=== PATIENT | male | born 1960 | race Caucasian/White ===

== ENCOUNTER 2018-01-23 15:02 | Emergency (ER) | payer BC, OTHER ==
[~2018-01-23] VITALS: Ht 170.2 cm; Wt 70.0 kg
[~2018-01-23 15:02] MED LIST: PROM25SU8 PO; ST JTAB PO
[2018-01-23 15:04] VITALS: PULSE 92; RESP 16; TEMP 97.4; O2SAT 99
[2018-01-23] MEDS ORDERED: ORPHENADRINE INJ 60 MG/2 ML AMP IM ONE (15:30)
[2018-01-23] MEDS ORDERED: KETOROLAC TROMETHAMINE 60 MG/2 ML (IM) VIAL IM ONE (15:30)
[2018-01-23] MEDS ORDERED: ROBA500T PO (15:37)
[2018-01-23] MEDS ORDERED: IBUP1TAB7 PO (15:37)
--- NOTE | 2018-01-23 15:37 | PD ---
HPI Chief Complaint: Back/ Neck Pain or Injury Time Seen by Provider: 15:25 Travel History International Travel<30 days: No Contact w/Intl Traveler<30days: No Traveled to known affect area: No History of Present Illness HPI 57 with low back pain that radiates into the right leg 3 days. He cannot recall specific injury or trauma. He reports he was moving furniture in his house over the weekend which she attributes to the pain. He reports previous back pain which was similar to this. He denies fever, incontinence, saddle anesthesia, paresthesia or weakness of the extremities. No history of IV drug use. Symptom severity is moderate. Aggravated by movement slightly relieved with rest. PFSH Past Medical History Hx Anticoagulant Therapy: Yes (asa 81mg) Cardiac Catheterization: Yes Cardiovascular Problems: Yes (4 vessel bypass) Diminished Hearing: No Hypertension: Yes Immunizations Current: No Myocardial Infarction: Yes Tetanus Vaccination: < 5 Years Past Surgical History Appendectomy: Yes Coronary Artery Bypass Graft: Yes (4X in 2008) Genitourinary Surgery: Yes (APPENDECTOMY @ 10 YEARS OF AGE) Social History Alcohol Use: Yes (couple beers a day) Tobacco Use: Yes (1 ppd) Substance Use: No Allergies-Medications (Allergen,Severity, Reaction): Coded Allergies: No Known Allergies (Verified Adverse Reaction, Unknown, 01/23/18) Reported Meds & Prescriptions Reported Meds & Active Scripts Active Review of Systems Except as stated in HPI: all other systems reviewed are Neg General / Constitutional: No: Fever Eyes: No: Visual changes HENT: No: Headaches Cardiovascular: No: Chest Pain or Discomfort Respiratory: No: Shortness of Breath Gastrointestinal: No: Abdominal Pain Genitourinary: No: Dysuria Skin: No Rash Neurologic: No: Weakness Physical Exam Narrative GENERAL: Alert and well-appearing 57-year-old male SKIN: Warm and dry. HEAD: Atraumatic. Normocephalic. EYES: Pupils equal and round. No injection or drainage. ENT: No nasal bleeding or discharge. Mucous membranes pink and moist. NECK: Trachea midline. No JVD. CARDIOVASCULAR: Regular rate and rhythm. RESPIRATORY: No accessory muscle use. Clear to auscultation. Breath sounds equal bilaterally. GASTROINTESTINAL: Abdomen soft, non-tender, nondistended. Hepatic and splenic margins not palpable. MUSCULOSKELETAL: Extremities without clubbing, cyanosis, or edema. Normal strength and sensation in the lower extremities. Ambulates with a steady gait. BACK: No CVA tenderness. No rash. +TTP right lumbar paravertebral musculature and over the SI joint. NEUROLOGICAL: Awake and alert. No obvious cranial nerve deficits. Motor grossly within normal limits. Five out of 5 muscle strength in the arms and legs. Data Data Last Documented VS Vital Signs Date Time Temp Pulse Resp B/P (MAP) Pulse Ox O2 Delivery O2 Flow Rate FiO2 01/23/18 15:04 97.4 92 16 99 Orders Orders Ketorolac Inj (Toradol Inj) (01/23/18 15:30) Orphenadrine Inj (Norflex Inj) (01/23/18 15:30) [facility] Medical Decision Making Medical Screen Exam Complete: Yes Emergency Medical Condition: Yes Differential Diagnosis Lumbar strain, sciatica, herniated disc Narrative Course 57-year-old male here with low back pain. He has a normal neurologic exam. He was given a shot of Toradol and Norflex. He reports symptom improvement. Diagnosis Primary Impression: Lumbar strain Qualified Codes: S39.012A - Strain of muscle, fascia and tendon of lower back , initial encounter Referrals: Primary Care Physician Additional Instructions: Medication as directed. Ice and/or heat for comfort. Perform light stretching starting tomorrow. Follow-up with your primary doctor Scripts Ibuprofen (Ibuprofen) 800 Mg Tab 800 MG PO Q6HR Y for PAIN, #20 TAB 0 Refills Prov: Tavia Silva 01/23/18 Methocarbamol (Robaxin) 500 Mg Tab 500 MG PO QID for Muscle Spasm for 4 Days, TAB 0 Refills Prov: Tavia Silva 01/23/18 Disposition: 01 DISCHARGE HOME Condition: Stable Tavia Silva Jan 23, 2018 15:37
== END 2018-01-23 16:10 | disposition home or self-care (01) ==
LOC: PHEFT 15:02
DX: S39.012A Strain of muscle, fascia and tendon of lower back, initial encounter (principal); X50.9XXA Other and unspecified overexertion or strenuous movements or postures, initial encounter; I10 Essential (primary) hypertension; I25.2 Old myocardial infarction; F17.200 Nicotine dependence, unspecified, uncomplicated; Z79.82 Long term (current) use of aspirin; Z95.1 Presence of aortocoronary bypass graft
CPT/HCPCS: 96372; 99283; J1885; J2360

== ENCOUNTER 2018-01-25 17:05 | Emergency (ER) | payer OTHER ==
[~2018-01-25 17:05] MED LIST changes: +IBUP1TAB7 PO; -PROM25SU8 PO; +ROBA500T PO; -ST JTAB PO
[2018-01-25 17:29] VITALS: BP 162/106; PULSE 101; RESP 18; TEMP 98.4; O2SAT 99
[2018-01-25] MEDS ORDERED: CYCLOBENZAPRINE HCL 10 MG TAB PO ONE (18:45)
[2018-01-25] MEDS ORDERED: DEXAMETHASONE SOD PHOS 20 MG/5 ML VIAL IM ONE (18:45)
[2018-01-25] MEDS ORDERED: CYCL10TA PO (18:57)
[2018-01-25] MEDS ORDERED: KETO10 PO (18:57)
[2018-01-25] MEDS ORDERED: PRED50 PO (18:57)
--- NOTE | 2018-01-25 18:57 | PD ---
HPI Chief Complaint: Back/ Neck Pain or Injury Time Seen by Provider: 18:15 Travel History International Travel<30 days: No Contact w/Intl Traveler<30days: No History of Present Illness HPI Patient is a 57-year-old male presenting to emerge department for evaluation of right lower back pain that started 4 days ago. Patient states the pain radiates down the back of his right leg. He reports the pain is 8 out of 10, sore and cramping, at times and shooting. Pain is constant, worse with ambulation and changing positions. Patient states he has been lying around for a few days because the pain is so bad. Patient reports that he went to urgent care 2 days ago and was given Robaxin and ibuprofen. He states that he has been taking this as scheduled but it does not help. He denies any weakness, numbness, bladder bowel incontinence, saddle paresthesia. Symptom onset was sudden, symptoms are moderate in nature. PFSH Past Medical History Hx Anticoagulant Therapy: Yes (asa 81mg) Cardiac Catheterization: Yes Cardiovascular Problems: Yes Diminished Hearing: No Hypertension: Yes Immunizations Current: No Myocardial Infarction: Yes Past Surgical History Appendectomy: Yes Coronary Artery Bypass Graft: Yes (4X in 2008) Genitourinary Surgery: Yes (APPENDECTOMY @ 10 YEARS OF AGE) Social History Alcohol Use: Yes (couple beers a day) Tobacco Use: Yes (1 ppd) Substance Use: Yes (MARIJUANA) Allergies-Medications (Allergen,Severity, Reaction): Coded Allergies: No Known Allergies (Verified Adverse Reaction, Unknown, 01/25/18) Reported Meds & Prescriptions Reported Meds & Active Scripts Active Prednisone 50 Mg Tab 50 Mg PO DAILY 5 Days Flexeril (Cyclobenzaprine HCl) 10 Mg Tab 10 Mg PO TID PRN Ketorolac (Ketorolac Tromethamine) 10 Mg Tab 10 Mg PO Q6HR PRN 10 Days Ibuprofen 800 Mg Tab 800 Mg PO Q6HR PRN Robaxin (Methocarbamol) 500 Mg Tab 500 Mg PO QID 4 Days Review of Systems Except as stated in HPI: all other systems reviewed are Neg Musculoskeletal: Positive: Myalgias, Cramping, Pain Physical Exam Narrative GENERAL: Well-developed, well-nourished, well-appearing male. Presenting in no acute distress. SKIN: Warm and dry. HEAD: Atraumatic. Normocephalic. EYES: Pupils equal and round. No scleral icterus. No injection or drainage. ENT: No nasal bleeding or discharge. Mucous membranes pink and moist. NECK: Trachea midline. No JVD. CARDIOVASCULAR: Regular rate and rhythm. RESPIRATORY: No accessory muscle use. Clear to auscultation. Breath sounds equal bilaterally. GASTROINTESTINAL: Abdomen soft, non-tender, nondistended. Hepatic and splenic margins not palpable. MUSCULOSKELETAL: Extremities without clubbing, cyanosis, or edema. No obvious deformities. Tenderness to palpation in the right paraspinal musculature and lumbar region. No spinal tenderness or step-off noted. NEUROLOGICAL: Awake and alert. No obvious cranial nerve deficits. Motor grossly within normal limits. Five out of 5 muscle strength in the arms and legs. Normal speech. PSYCHIATRIC: Appropriate mood and affect; insight and judgment normal. Data Data Last Documented VS Vital Signs Date Time Temp Pulse Resp B/P (MAP) Pulse Ox O2 Delivery O2 Flow Rate FiO2 01/25/18 17:29 98.4 101 18 162/106 (124) 99 Orders Orders Dexamethasone Inj (Decadron Inj) (01/25/18 18:45) Cyclobenzaprine (Flexeril) (01/25/18 18:45) Ed Discharge Order (01/25/18 18:57) [facility] Medical Decision Making Medical Screen Exam Complete: Yes Emergency Medical Condition: Yes Medical Record Reviewed: Yes Interpretation(s) Vital Signs Date Time Temp Pulse Resp B/P (MAP) Pulse Ox O2 Delivery O2 Flow Rate FiO2 01/25/18 17:29 98.4 101 18 162/106 (124) 99 Differential Diagnosis Myalgia versus muscle strain versus muscle spasm versus discogenic pain versus sciatica versus other Narrative Course Patient is well-appearing 57-year-old male presenting for evaluation of low back pain. Medical records reviewed, patient was in [place] 2 days ago and prescribed ibuprofen and Robaxin. Patient has a tender point on exam. Exam is consistent with musculoskeletal strain. Patient was given injection of dexamethasone and oral Flexeril. Patient will be discharged home, he will be given new prescriptions for different medications. He was encouraged to avoid bed rest, maintain active range of motion exercises, apply warm heat to affected area. He verbalized understanding of instructions. Patient stable for discharge. Diagnosis Primary Impression: Lumbar strain Qualified Codes: S39.012D - Strain of muscle, fascia and tendon of lower back , subsequent encounter Referrals: [facility] 1 week Patient Instructions: General Instructions, Muscle Spasm (ED), Muscle Strain ( ED) Additional Instructions: Follow-up at the [facility] clinic Take medications as directed Stop laying around, perform gentle stretching exercises and range of motion exercises Apply warm heat to the affected area Return to emergency department for any new or worsening symptoms Discontinue previously prescribed medications. Med/Other Pt SpecificInfo: Prescription(s) given Scripts Prednisone (Prednisone) 50 Mg Tab 50 MG PO DAILY for 5 Days, #5 TAB 0 Refills Prov: Mary Larson 01/25/18 Cyclobenzaprine (Flexeril) 10 Mg Tab 10 MG PO TID Y for MUSCLE SPASM, #30 TAB 0 Refills Prov: Mary Larson 01/25/18 Ketorolac (Ketorolac) 10 Mg Tab 10 MG PO Q6HR Y for PAIN for 10 Days, TAB 0 Refills Prov: Mary Larson 01/25/18 Disposition: 01 DISCHARGE HOME Condition: Stable Mary Larson Jan 25, 2018 18:57
== END 2018-01-25 20:22 | disposition home or self-care (01) ==
LOC: NEPD 17:05
DX: S39.012A Strain of muscle, fascia and tendon of lower back, initial encounter (principal); I10 Essential (primary) hypertension; I25.2 Old myocardial infarction; F17.210 Nicotine dependence, cigarettes, uncomplicated; Z79.82 Long term (current) use of aspirin
CPT/HCPCS: 96372; 99283; J1100

== ENCOUNTER 2018-01-28 09:40 | Emergency (ER) | payer OTHER ==
[~2018-01-28] VITALS: Ht 170.2 cm; Wt 75.0 kg
[~2018-01-28 09:40] MED LIST changes: +CYCL10TA PO; +KETO10 PO; +PRED50 PO
[2018-01-28 09:45] VITALS: BP 173/102; PULSE 89; RESP 18; TEMP 97.5; O2SAT 100
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
[2018-01-28] MEDS ORDERED: GABA300C5 PO (10:23)
[2018-01-28] MEDS ORDERED: GABAPENTIN 300 MG CAP PO ONE (10:30)
== END 2018-01-28 11:15 | disposition home or self-care (01) ==
LOC: NEPD 09:40
DX: M54.41 Lumbago with sciatica, right side (principal); I10 Essential (primary) hypertension; I25.2 Old myocardial infarction; F17.200 Nicotine dependence, unspecified, uncomplicated; F12.90 Cannabis use, unspecified, uncomplicated; Z79.82 Long term (current) use of aspirin; Z95.1 Presence of aortocoronary bypass graft
CPT/HCPCS: 99283